=== PATIENT | male | born 1970 | race Caucasian/White ===

== ENCOUNTER 2019-08-29 14:47 | Inpatient (IN) | payer OTHER ==
[2019-08-29 15:23] VITALS: BMI 29.2
--- NOTE | 2019-08-29 15:35 | HP ---
COWS - Scale Resting Pulse: 1= [place] 81-100 Sweatin= Chills/Flushing Restless Observation: 1= Difficult to Sit Still Pupil Size: 0= Normal to Room Light Bone or Joint Aches: 0= None Runny Nose/ Eye Tearin= Nasal Congestion GI Upset > 30mins: 0= None Tremor Observation: 0= None Yawning Observation: 1= 1-2x During Session Anxiety or Irritability: 1=Feels Anxious/Irritable Goose Flesh Skin: 0=Smooth Skin (not yet in withdrawals. just used this morning as fentany and opiod in urine tox.) COWS Score: 6 CIWA Score - Admission Criteria OASAS Guidelines: Admission for Medically Managed Detox: Requires at least one of the followin. CIWA greater than 12 2. Seizures within the past 24 hours 3. Delirium tremens within the past 24 hours 4. Hallucinations within the past 24 hours 5. Acute intervention needed for co occurring medical disorder 6. Acute intervention needed for co occurring psychiatric disorder 7. Severe withdrawal that cannot be handled at a lower level of care (continued vomiting, continued diarrhea, abnormal vital signs) requiring intravenous medication and/or fluids 8. Admitting History and Physical - Admission Chief Complaint: "I tired of using drugs and I got my and daughter and I am spending too much money on the drugs." History of Present Illness: 49 year old male wiht heroin for 20 years and detox and rehab in 2009 and was abstinent. He was in assisted from 2014- but release in 2018 and was abstinent until 6 months ago when he relapsed. Heroin: 10 bags of heroin daily, intravenously,last used this morning today, he never overdosed but witnessed his friend . Cocaine: 1-2 bags every day, last used yesterday. PMH: HTN, HIV on medications Psurg: Umbilical Hernia 2018 Psych: Depression insomnia Patient at high risk for overdose. Poor judgment Poor environment for recover. Many stressors that can cause him to relapse. 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 History of Recent Travel: No Admission ROS [facility] - [facility] Allergies/Adverse Reactions: Allergies Allergy/AdvReac Type Severity Reaction Status Date / Time No Known Allergies Allergy Verified 08/29/19 15:07 Exam Limitations: No Limitations - Ebola screening Have you traveled outside of the country in the last 21 days: No Have you had contact with anyone from an Ebola affected area: No Have you been sick,other than usual withdrawal symptoms: No Do you have a fever: No - Review of Systems Constitutional: Chills EENT: reports: No Symptoms Reported Respiratory: reports: No Symptoms reported Cardiac: reports: No Symptoms Reported GI: reports: No Symptoms Reported : reports: No Symptoms Reported Musculoskeletal: reports: No Symptoms Reported Integumentary: reports: No Symptoms Reported Neuro: reports: No Symptoms reported Endocrine: reports: No Symptoms Reported Hematology: reports: No Symptoms Reported Psychiatric: reports: Judgement Intact, Mood/Affect Appropiate, Orientated x3, Anxious Other Systems: Reviewed and Negative Patient History - Patient Medical History Hx Anemia: No Hx Asthma: No Hx Chronic Obstructive Pulmonary Disease (COPD): No Hx Cancer: No Hx Cardiac Disorders: No Hx Congestive Heart Failure: No Hx Hypertension: Yes Hx Hypercholesterolemia: No Hx Pacemaker: No HX Cerebrovascular Accident: No Hx Seizures: No Hx Dementia: No Hx Diabetes: No Hx Gastrointestinal Disorders: No Hx Liver Disease: No Hx Genitourinary Disorders: No Hx Sexually Transmitted Disorders: No Hx Renal Disease (ESRD): No Hx Thyroid Disease: No Hx Human Immunodeficiency Virus (HIV): Yes (on meds) Hx Hepatitis C: Yes (treated while in assisted) Hx Depression: No Hx Suicide Attempt: No Hx Bipolar Disorder: No - Smoking Cessation Smoking history: Current every day smoker Have you smoked in the past 12 months: Yes Aproximately how many cigarettes per day: 5 Hx Chewing Tobacco Use: No Initiated information on smoking cessation: Yes 'Breaking Loose' booklet given: 08/29/19 - Substances abused Heroin Substance route: Inhalation Frequency: Daily Amount used: 10 bags Age of first use: 18 Date of last use: 08/29/19 Cocaine Substance route: Injection Frequency: 1-2 times per week Amount used: 1-2 bags Age of first use: 18 Date of last use: 08/26/19 Admission Physical Exam [facility] - Vital Signs Vital Signs: Vital Signs - 24 hr 08/29/19 15:07 Temperature 97.1 F L Pulse Rate 84 Respiratory 17 Rate Blood Pressure 117/66 - Physical General Appearance: Yes: No Apparent Distress, Appropriately Dressed, Mild Distress, Sweating, Anxious HEENTM: Yes: EOMI, Hearing grossly Normal, Normal ENT Inspection, Normocephalic , Normal Voice, [place], Pharynx Normal, Tm's normal Respiratory: Yes: Chest Non-Tender, Lungs Clear, Normal Breath Sounds, No Respiratory Distress, No Accessory Muscle Use Neck: Yes: No masses,lesions,Nodules, Supple, Trachea in good position Breast: Yes: Within Normal Limits Cardiology: Yes: Regular Rhythm, Regular Rate, S1, S2 Abdominal: Yes: Non Tender, Increased Bowel Sounds, Protuberent Genitourinary: Yes: Within Normal Limits Back: Yes: Normal Inspection Musculoskeletal: Yes: full range of Motion, Gait Steady, Pelvis Stable Extremities: Yes: Normal Capillary Refill Neurological: Yes: 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
[2019-08-29] MEDS ORDERED: METHOCARBAMOL 500 MG TABLET PO PRN (15:41)
[2019-08-29] MEDS ORDERED: BISMUTH SUBSALICYLATE 524 MG/30 ML UD PO PRN (15:41)
[2019-08-29] MEDS ORDERED: MELATONIN 5 MG TABLETS PO PRN (15:41)
[2019-08-29] MEDS ORDERED: hydrOXYzine PAMOATE 25 MG CAPSULE (FP) PO PRN (15:41)
[2019-08-29] MEDS ORDERED: ACETAMINOPHEN 325 MG TABLET (FP) PO PRN ×2 (15:41)
[2019-08-29] MEDS ORDERED: MAGNESIUM CITRATE 300 ML BOTTLE PO PRN (15:41)
[2019-08-29] MEDS ORDERED: MAG HYDROX/AL HYDROX/SIMETH 30 ML UNIT-DOSE CUP PO PRN (15:41)
[2019-08-29] MEDS ORDERED: MENTHOL/PHENOL 1 EACH UD MM PRN (15:41)
[2019-08-29] MEDS ORDERED: MAGNESIUM HYDROX 2400MG/30ML ORAL SUSPENSION 30 ML CUP PO PRN (15:41)
[2019-08-29] MEDS ORDERED: IBUPROFEN 400 MG TABLET (FP) PO PRN (15:41)
[2019-08-29] MEDS ORDERED: cloNIDine HCL 0.1 MG TABLET PO PRN (15:41)
[2019-08-29] MEDS ORDERED: METHADONE HCL 10 MG TABLET (FOR DETOX USE ONLY) PO ONE (17:00)
[2019-08-29] MEDS ORDERED: PATIENT'S OWN MEDICATION (NON-FORMULARY) (Ibuprofen/Famotidine [Duexis 800-26.6 Mg Tablet] PO SCH (22:00)
[2019-08-29] MEDS: traZODone HCL 100 MG TABLET (FP) PO SCH (22:19)
[2019-08-29] MEDS: THIAMINE HCL 100 MG TABLET (FP) PO SCH (22:19)
[2019-08-30] MEDS: DARUNAVIR 800 MG/COBICISTAT 150MG TABLET PO SCH (06:25)
[2019-08-30] MEDS: DOLUTEGRAVIR SODIUM 50 MG TABLET (NON-FORMULARY) PO SCH (06:25)
[2019-08-30] MEDS ORDERED: METHADONE HCL 5 MG TABLET (FOR DETOX USE ONLY) ONE (09:18)
[2019-08-30] MEDS ORDERED: METHADONE HCL 10 MG TABLET (FOR DETOX USE ONLY) ONE (09:19)
[2019-08-30 09:50] LABS: HEMATOCRIT 34.9 % (35.4-49); HEMOGLOBIN 11.8 GM/dL (11.7-16.9); MCH 30.3 pg (25.7-33.7); MCHC 33.8 g/dl (32.0-35.9); MEAN CELL VOLUME 89.7 fl (80-96); MEAN PLT VOLUME 10.3 fl (7.5-11.1); PLATELET COUNT 209 K/MM3 (134-434); RBC 3.89 M/mm3 (4.00-5.60); RDW 13.5 % (11.9-15.9); WHITE BLOOD COUNT 6.9 K/mm3 (4.0-10.0)
[2019-08-30 09:59] LABS: ALBUMIN 3.5 g/dl (3.4-5.0); BILIRUBIN,TOTAL 0.4 mg/dL (0.2-1); BLOOD UREA NITROGEN 20.3 mg/dL (7-18); CALCIUM 9.2 mg/dL (8.5-10.1); CREATININE 1.2 mg/dL (0.55-1.3); POTASSIUM 3.9 mmol/L (3.5-5.1)
[2019-08-30] MEDS ORDERED: PATIENT'S OWN MEDICATION (NON-FORMULARY) (Lisinopril/Hydrochlorothiazide [Lisinopril-Hctz PO SCH (10:00)
[2019-08-30] MEDS ORDERED: METHADONE (DETOX) 20 MG, METHADONE (DETOX) 5 MG PO ONE (10:00)
[2019-08-30] MEDS: amLODIPine BESYLATE 5 MG TABLET (FP) PO SCH (10:12)
[2019-08-30] MEDS: ASPIRIN 81 MG CHEWABLE TABLETS PO SCH (10:12)
[2019-08-30] MEDS: HYDROCHLOROTHIAZIDE 25 MG TABLET (FP) PO SCH (10:12)
[2019-08-30] MEDS: PREGABALIN 75 MG CAPSULE PO SCH (10:12)
[2019-08-30] MEDS: PATIENT'S OWN MEDICATION (NON-FORMULARY) (Omeprazole [Omeprazole] 40 MG) PO SCH (10:13)
[2019-08-30] MEDS: LISINOPRIL 20 MG TABLET (FP) PO SCH (10:13)
[2019-08-30] MEDS: PRENATAL VITAMINS W/ FOLIC ACID TABLET (FP) PO SCH (10:13)
[2019-08-30] MEDS: PATIENT'S OWN MEDICATION (NON-FORMULARY) (Pravastatin Sodium 40 MG) PO SCH (10:13)
[2019-08-30] MEDS: PATIENT'S OWN MEDICATION (NON-FORMULARY) (Sertraline Hcl [Sertraline Hcl] 100 MG) PO SCH (10:13)
--- NOTE | 2019-08-30 11:42 | CONSULT ---
[facility] Psychiatric Consult - Data Date of interview: 08/30/19 Admission source: [facility] Identifying data: First visit to [facility] and admission to [address] [place] [address] for this 49 y/o male self-referred for detoxification treatment. CECELIA issues : heroin, cocaine, nicotine. Patient is , father of one, domiciled (lives with + daughter), unemployed and currently deprived of income. Substance Abuse History: Discussed with the patient. Details in current [facility] report as follows : Smoking history: Current every day smoker. Have you smoked in the past 12 months: Yes. Aproximately how many cigarettes per day: 5. Hx Chewing Tobacco Use: No. Initiated information on smoking cessation: Yes. ' Breaking Loose' booklet given: 08/29/19. - Substances abused. Heroin. Substance route: Inhalation. Frequency: Daily. Amount used: 10 bags. Age of first use: 18. Date of last use: 08/29/19. Cocaine. Substance route: Injection. Frequency: 1-2 times per week. Amount used: 1-2 bags. Age of first use: 18. Date of last use: 08/26/19 Medical History: Medical profile is remarkable for hypertension, hepatitis C ( treated), HIV infection since 1997 (on ART medications) and history of umbilical herniorraphy. Psychiatric History: Patient denies history of psychiatric hospitalizations. He , however, reports monthly psychiatric follow-up care at [facility] in [facility]. " I see a psychiatrist there every month for depression and insomnia." Mr Jimenez is prescribed trazodone and sertraline. Patient denies history of suicide attempts. Physical/Sexual Abuse/Trauma History: Patient denies. Additional Comment: No toxicology available for review. Mental Status Exam - Mental Status Exam Alert and Oriented to: Time, Place, Person Cognitive Function: Good Patient Appearance: Well Groomed Mood: Withdrawn, Hopeful Affect: Appropriate, Normal Range Patient Behavior: Fatigued, Appropriate, Cooperative Speech Pattern: Clear, Appropriate Voice Loudness: Normal Thought Process: Intact, Goal Oriented Thought Disorder: Not Present Hallucinations: Denies Suicidal Ideation: Denies Homicidal Ideation: Denies Insight/Judgement: Poor Sleep: Well (on trazodone) Gait/Station: Normal Psychiatric Findings - Problem List ([place] 1, 2,3) (1) Opioid use disorder Current Visit: Yes Status: Chronic (2) Cocaine use disorder Current Visit: Yes Status: Chronic (3) Nicotine dependence Current Visit: Yes Status: Chronic (4) Substance induced mood disorder Current Visit: Yes Status: Chronic (5) History of depression Current Visit: Yes Status: Chronic Comment: On sertraline. (6) Insomnia Current Visit: Yes Status: Chronic - Initial Treatment Plan Initial Treatment Plan: Psychoeducation. Sleep hygiene. Detoxification. MAT services discussed with patient. NA meetings. Zoloft 100 mg po daily + trazodone 100 mg po hs are already in place (started in ED by medical attending) . Side effects/benefits of both drugs are discussed with the patient in this session. Made aware of potential for priapism, occurrence of suicidal ideation and sexual dysfunction (impotence). Mr Jimenez has expressed his agreement with this plan of care. Gave verbal consent to MD. Downey.
--- NOTE | 2019-08-30 14:08 | PN ---
BHS COWS - Scale Resting Pulse: 0= [place] 80 or Below Sweatin= Chills/Flushing Restless Observation: 1= Difficult to Sit Still Pupil Size: 0= Normal to Room Light Bone or Joint Aches: 2= Severe Diffuse Aches Runny Nose/ Eye Tearin= Nasal Congestion GI Upset > 30mins: 1= Stomach Cramp Tremor Observation of Outstretched Hands: 1= Tremor [place], Not Seen Yawning Observation: 0= None Anxiety or Irritability: 1=Feels Anxious/Irritable Goose Flesh Skin: 0=Smooth Skin COWS Score: 8 BHS Progress Note (SOAP) Subjective: Tremors, sweats, interrupted sleep and abdominal cramps Objective: 08/30/19 14:07 Withdrawal sx Vital Signs 08/30/19 08/30/19 06:46 08:57 Temperature 98.1 F 99.5 F Pulse Rate 67 78 Respiratory 20 19 Rate Blood Pressure 132/58 L 131/74 VSS Laboratory Last Values WBC 6.9 K/mm3 (4.0-10.0) 08/30/19 07:30 RBC 3.89 M/mm3 (4.00-5.60) L 08/30/19 07:30 Hgb 11.8 GM/dL (11.7-16.9) 08/30/19 07:30 Hct 34.9 % (35.4-49) L 08/30/19 07:30 MCV 89.7 fl (80-96) 08/30/19 07:30 MCH 30.3 pg (25.7-33.7) 08/30/19 07:30 MCHC 33.8 g/dl (32.0-35.9) 08/30/19 07:30 RDW 13.5 % (11.9-15.9) 08/30/19 07:30 Plt Count 209 K/MM3 (134-434) 08/30/19 07:30 MPV 10.3 fl (7.5-11.1) 08/30/19 07:30 Sodium 140 mmol/L (136-145) 08/30/19 07:30 Potassium 3.9 mmol/L (3.5-5.1) 08/30/19 07:30 Chloride 104 mmol/L (98-107) 08/30/19 07:30 Carbon Dioxide 30 mmol/L (21-32) 08/30/19 07:30 Anion Gap 5 MMOL/L (8-16) L 08/30/19 07:30 BUN 20.3 mg/dL (7-18) H 08/30/19 07:30 Creatinine 1.2 mg/dL (0.55-1.3) 08/30/19 07:30 Est GFR (CKD-EPI)AfAm 80.66 08/30/19 07:30 Est GFR (CKD-EPI)NonAf 69.59 08/30/19 07:30 Random Glucose 111 mg/dL (74-106) H 08/30/19 07:30 Calcium 9.2 mg/dL (8.5-10.1) 08/30/19 07:30 Total Bilirubin 0.4 mg/dL (0.2-1) 08/30/19 07:30 AST 17 U/L (15-37) 08/30/19 07:30 ALT 25 U/L (13-61) 08/30/19 07:30 Alkaline Phosphatase 77 U/L (45-117) 08/30/19 07:30 Total Protein 7.0 g/dl (6.4-8.2) 08/30/19 07:30 Albumin 3.5 g/dl (3.4-5.0) 08/30/19 07:30 RPR Titer Nonreactive (NONREACTIVE) 08/30/19 07:30 Labs noted, no panic values Assessment: 08/30/19 14:08 Withdrawal sx Plan: Continue detox
[2019-08-30] MEDS: THIAMINE HCL 100 MG TABLET (FP) PO SCH (22:00)
[2019-08-30] MEDS: traZODone HCL 100 MG TABLET (FP) PO SCH (22:01)
[2019-08-31] MEDS: DOLUTEGRAVIR SODIUM 50 MG TABLET (NON-FORMULARY) PO SCH (06:12)
[2019-08-31] MEDS: DARUNAVIR 800 MG/COBICISTAT 150MG TABLET PO SCH (06:12)
[2019-08-31] MEDS ORDERED: METHADONE HCL 10 MG TABLET (FOR DETOX USE ONLY) PO ONE (10:00)
[2019-08-31] MEDS: ASPIRIN 81 MG CHEWABLE TABLETS PO SCH (10:03)
[2019-08-31] MEDS: PREGABALIN 75 MG CAPSULE PO SCH (10:03)
[2019-08-31] MEDS: LISINOPRIL 20 MG TABLET (FP) PO SCH (10:03)
[2019-08-31] MEDS: amLODIPine BESYLATE 5 MG TABLET (FP) PO SCH (10:03)
[2019-08-31] MEDS: HYDROCHLOROTHIAZIDE 25 MG TABLET (FP) PO SCH (10:03)
[2019-08-31] MEDS: PRENATAL VITAMINS W/ FOLIC ACID TABLET (FP) PO SCH (10:04)
[2019-08-31] MEDS: PATIENT'S OWN MEDICATION (NON-FORMULARY) (Omeprazole [Omeprazole] 40 MG) PO SCH (10:04)
[2019-08-31] MEDS: PATIENT'S OWN MEDICATION (NON-FORMULARY) (Sertraline Hcl [Sertraline Hcl] 100 MG) PO SCH (10:04)
[2019-08-31] MEDS: PATIENT'S OWN MEDICATION (NON-FORMULARY) (Pravastatin Sodium 40 MG) PO SCH (10:04)
--- NOTE | 2019-08-31 15:33 | PN ---
BHS COWS - Scale Resting Pulse: 0= [place] 80 or Below Sweatin= Chills/Flushing Restless Observation: 1= Difficult to Sit Still Pupil Size: 0= Normal to Room Light Bone or Joint Aches: 1= Mild Discomfort Runny Nose/ Eye Tearin= Runny Nose/Eyes GI Upset > 30mins: 2= Nausea/Diarrhea Tremor Observation of Outstretched Hands: 2= Slight Tremor Visible Yawning Observation: 0= None Anxiety or Irritability: 2=Irritable/Anxious Goose Flesh Skin: 0=Smooth Skin COWS Score: 11 BHS Progress Note (SOAP) Subjective: Lower back pain Objective: 08/31/19 15:30 Last Vital Signs Temp Pulse Resp BP Pulse Ox 97.9 F 74 18 113/64 08/31/19 12:32 08/31/19 12:32 08/31/19 12:32 08/31/19 12:32 Laboratory Tests 08/30/19 08/30/19 08/30/19 07:30 07:30 07:30 WBC 6.9 RBC 3.89 L Hgb 11.8 Hct 34.9 L MCV 89.7 MCH 30.3 MCHC 33.8 RDW 13.5 Plt Count 209 MPV 10.3 Sodium 140 Potassium 3.9 Chloride 104 Carbon Dioxide 30 Anion Gap 5 L BUN 20.3 H Creatinine 1.2 Est GFR (CKD-EPI)AfAm 80.66 Est GFR (CKD-EPI)NonAf 69.59 Random Glucose 111 H Calcium 9.2 Total Bilirubin 0.4 AST 17 ALT 25 Alkaline Phosphatase 77 Total Protein 7.0 Albumin 3.5 RPR Titer Nonreactive Labs reviewed: bun 20.3 (high), gluc 111 (high) Assessment: 08/31/19 15:31 Withdrawal sxs Noted with azotemia and hyperglycemia Plan: Continue detox Encouraged PO water intake Azotemia: encouraged to drink more water Hyperglycemia: mild, most likely r/t withdrawal, follow up with PCP for monitoring
[2019-08-31] MEDS: THIAMINE HCL 100 MG TABLET (FP) PO SCH (22:04)
[2019-08-31] MEDS: traZODone HCL 100 MG TABLET (FP) PO SCH (22:04)
[2019-09-01] MEDS: DARUNAVIR 800 MG/COBICISTAT 150MG TABLET PO SCH (07:20)
[2019-09-01] MEDS: DOLUTEGRAVIR SODIUM 50 MG TABLET (NON-FORMULARY) PO SCH (07:20)
[2019-09-01] MEDS ORDERED: IBUPROFEN 400 MG TABLET (FP) PO PRN (08:25)
[2019-09-01] MEDS ORDERED: METHADONE HCL 5 MG TABLET (FOR DETOX USE ONLY) ONE (09:13)
[2019-09-01] MEDS ORDERED: METHADONE HCL 10 MG TABLET (FOR DETOX USE ONLY) ONE (09:14)
[2019-09-01] MEDS ORDERED: METHADONE (DETOX) 10 MG, METHADONE (DETOX) 5 MG PO ONE (10:00)
[2019-09-01] MEDS: LISINOPRIL 20 MG TABLET (FP) PO SCH (10:09)
[2019-09-01] MEDS: PREGABALIN 75 MG CAPSULE PO SCH (10:10)
[2019-09-01] MEDS: ASPIRIN 81 MG CHEWABLE TABLETS PO SCH (10:10)
[2019-09-01] MEDS: PATIENT'S OWN MEDICATION (NON-FORMULARY) (Sertraline Hcl [Sertraline Hcl] 100 MG) PO SCH (10:10)
[2019-09-01] MEDS: HYDROCHLOROTHIAZIDE 25 MG TABLET (FP) PO SCH (10:10)
[2019-09-01] MEDS: amLODIPine BESYLATE 5 MG TABLET (FP) PO SCH (10:10)
[2019-09-01] MEDS: PATIENT'S OWN MEDICATION (NON-FORMULARY) (Pravastatin Sodium 40 MG) PO SCH (10:11)
[2019-09-01] MEDS: PATIENT'S OWN MEDICATION (NON-FORMULARY) (Omeprazole [Omeprazole] 40 MG) PO SCH (10:11)
[2019-09-01] MEDS: PRENATAL VITAMINS W/ FOLIC ACID TABLET (FP) PO SCH (10:11)
--- NOTE | 2019-09-01 10:54 | PN ---
BHS COWS - Scale Resting Pulse: 0= [place] 80 or Below Sweatin= Chills/Flushing Restless Observation: 1= Difficult to Sit Still Pupil Size: 0= Normal to Room Light Bone or Joint Aches: 2= Severe Diffuse Aches Runny Nose/ Eye Tearin= None GI Upset > 30mins: 0= None Tremor Observation of Outstretched Hands: 1= Tremor [place], Not Seen Yawning Observation: 0= None Anxiety or Irritability: 1=Feels Anxious/Irritable Goose Flesh Skin: 0=Smooth Skin COWS Score: 6 BHS Progress Note (SOAP) Subjective: chronic back pain restless anxiety Objective: 09/01/19 10:54 Vital Signs Temperature 98.1 F 09/01/19 08:13 Pulse Rate 69 09/01/19 08:13 Respiratory Rate 18 09/01/19 08:13 Blood Pressure 115/65 09/01/19 08:13 O2 Sat by Pulse Oximetry (%) Laboratory Tests 08/30/19 08/30/19 08/30/19 07:30 07:30 07:30 WBC 6.9 RBC 3.89 L Hgb 11.8 Hct 34.9 L MCV 89.7 MCH 30.3 MCHC 33.8 RDW 13.5 Plt Count 209 MPV 10.3 Sodium 140 Potassium 3.9 Chloride 104 Carbon Dioxide 30 Anion Gap 5 L BUN 20.3 H Creatinine 1.2 Est GFR (CKD-EPI)AfAm 80.66 Est GFR (CKD-EPI)NonAf 69.59 Random Glucose 111 H Calcium 9.2 Total Bilirubin 0.4 AST 17 ALT 25 Alkaline Phosphatase 77 Total Protein 7.0 Albumin 3.5 RPR Titer Nonreactive aaox3 ambulating no acute distress Assessment: 09/01/19 10:54 withdrawals Plan: continue detox lidocaine patch motrin 800mg tid prn
[2019-09-01] MEDS ORDERED: LIDOCAINE 5% TOPICAL PATCH TP ONE (10:55)
[2019-09-01] MEDS ORDERED: LIDOCAINE PATCH REMOVAL MC SCH (22:00)
[2019-09-01] MEDS: traZODone HCL 100 MG TABLET (FP) PO SCH (22:13)
[2019-09-01] MEDS: THIAMINE HCL 100 MG TABLET (FP) PO SCH (22:13)
[2019-09-02] MEDS: DOLUTEGRAVIR SODIUM 50 MG TABLET (NON-FORMULARY) PO SCH (07:58)
[2019-09-02] MEDS: DARUNAVIR 800 MG/COBICISTAT 150MG TABLET PO SCH (07:58)
[2019-09-02 09:33] VITALS: BP 131/72; PULSE 81; TEMP 98.7
[2019-09-02] MEDS ORDERED: LIDOCAINE 5% TOPICAL PATCH TP SCH (10:00)
[2019-09-02] MEDS ORDERED: METHADONE HCL 10 MG TABLET (FOR DETOX USE ONLY) PO ONE (10:00)
[2019-09-02] MEDS: LISINOPRIL 20 MG TABLET (FP) PO SCH (10:08)
[2019-09-02] MEDS: amLODIPine BESYLATE 5 MG TABLET (FP) PO SCH (10:08)
[2019-09-02] MEDS: ASPIRIN 81 MG CHEWABLE TABLETS PO SCH (10:08)
[2019-09-02] MEDS: PREGABALIN 75 MG CAPSULE PO SCH (10:08)
[2019-09-02] MEDS: HYDROCHLOROTHIAZIDE 25 MG TABLET (FP) PO SCH (10:08)
[2019-09-02] MEDS: PATIENT'S OWN MEDICATION (NON-FORMULARY) (Sertraline Hcl [Sertraline Hcl] 100 MG) PO SCH (10:09)
[2019-09-02] MEDS: PRENATAL VITAMINS W/ FOLIC ACID TABLET (FP) PO SCH (10:09)
[2019-09-02] MEDS: PATIENT'S OWN MEDICATION (NON-FORMULARY) (Pravastatin Sodium 40 MG) PO SCH (10:09)
[2019-09-02] MEDS: PATIENT'S OWN MEDICATION (NON-FORMULARY) (Omeprazole [Omeprazole] 40 MG) PO SCH (10:09)
--- NOTE | 2019-09-02 10:33 | PN ---
BHS COWS - Scale Resting Pulse: 1= [place] 81-100 Sweatin= Chills/Flushing Restless Observation: 1= Difficult to Sit Still Pupil Size: 0= Normal to Room Light Bone or Joint Aches: 1= Mild Discomfort Runny Nose/ Eye Tearin= None GI Upset > 30mins: 0= None Tremor Observation of Outstretched Hands: 0= None Yawning Observation: 0= None Anxiety or Irritability: 1=Feels Anxious/Irritable Goose Flesh Skin: 0=Smooth Skin COWS Score: 5 BHS Progress Note (SOAP) Subjective: back pain anxiety Objective: 09/02/19 10:33 Vital Signs Temperature 98.7 F 09/02/19 08:33 Pulse Rate 81 09/02/19 08:33 Respiratory Rate 17 09/02/19 08:33 Blood Pressure 131/72 09/02/19 08:33 O2 Sat by Pulse Oximetry (%) aaox3 ambulating no acute distress Assessment: 09/02/19 10:33 mild withdrawals Plan: d/c in am
--- NOTE | 2019-09-02 11:04 | DS ---
[facility] Detox Discharge Summary Admission Date: 08/29/19 Discharge Date: 09/02/19 - History Present History: Cannabis Dependence, Opioid Dependence - Physical Exam Results Vital Signs: Vital Signs Temperature 98.7 F 09/02/19 08:33 Pulse Rate 81 09/02/19 08:33 Respiratory Rate 17 09/02/19 08:33 Blood Pressure 131/72 09/02/19 08:33 O2 Sat by Pulse Oximetry (%) Pertinent Admission Physical Exam Findings: Vital Signs Temperature 98.7 F 09/02/19 08:33 Pulse Rate 81 09/02/19 08:33 Respiratory Rate 17 09/02/19 08:33 Blood Pressure 131/72 09/02/19 08:33 O2 Sat by Pulse Oximetry (%) Laboratory Tests 08/30/19 08/30/19 08/30/19 07:30 07:30 07:30 WBC 6.9 RBC 3.89 L Hgb 11.8 Hct 34.9 L MCV 89.7 MCH 30.3 MCHC 33.8 RDW 13.5 Plt Count 209 MPV 10.3 Sodium 140 Potassium 3.9 Chloride 104 Carbon Dioxide 30 Anion Gap 5 L BUN 20.3 H Creatinine 1.2 Est GFR (CKD-EPI)AfAm 80.66 Est GFR (CKD-EPI)NonAf 69.59 Random Glucose 111 H Calcium 9.2 Total Bilirubin 0.4 AST 17 ALT 25 Alkaline Phosphatase 77 Total Protein 7.0 Albumin 3.5 RPR Titer Nonreactive aaox3 ambulating lungs CTA no acute distress d/c took appox 30-35min - Treatment Hospital Course: Detox Protocol Followed, Detoxed Safely, Responded well, Discharged Condition Good, Rehab Referral Accepted - Medication Discharge Medications: Ambulatory Orders Amlodipine Besylate [Norvasc -] 5 mg PO DAILY 08/29/19 Aspirin 81 mg PO DAILY 08/29/19 Darunavir/Cobicistat [Prezcobix 800 mg-150 mg Tablet] 1 each PO DAILY 08/29/19 Dolutegravir Sodium [Tivicay] 50 mg PO DAILY 08/29/19 Ibuprofen/Famotidine [Duexis 800-26.6 mg Tablet] 1 each PO TID 08/29/19 Lisinopril/Hydrochlorothiazide [Lisinopril-Hctz 20-25 mg Tab] 1 each PO DAILY Metoprolol Succinate 50 mg PO DAILY 08/29/19 Omeprazole 40 mg PO DAILY 08/29/19 Pravastatin Sodium [Pravachol (Nf)] 40 mg PO DAILY 08/29/19 Pregabalin [Lyrica -] 75 mg PO DAILY 08/29/19 Sertraline HCl 100 mg PO DAILY 08/29/19 traZODone HCL [Desyrel -] 100 mg PO HS 08/29/19 - Diagnosis (1) Cocaine use disorder Current Visit: Yes Status: Chronic (2) History of depression Current Visit: Yes Status: Chronic (3) Insomnia Current Visit: Yes Status: Chronic (4) Nicotine dependence Current Visit: Yes Status: Chronic Qualifiers: Nicotine product type: cigarettes Substance use status: uncomplicated Qualified Code(s): F17.210 - Nicotine dependence, cigarettes, uncomplicated (5) Opioid use disorder Current Visit: Yes Status: Chronic (6) Substance induced mood disorder Current Visit: Yes Status: Chronic - AMA Did Patient Leave Against Medical Advice: No
[2019-09-03] MEDS ORDERED: METHADONE HCL 5 MG TABLET (FOR DETOX USE ONLY) PO ONE (06:00)
== END 2019-09-02 11:38 | disposition home or self-care (01) | DRG 773 ==
LOC: YASAS 14:47 → Y6N 16:26
PROVIDERS: ADMIT Allergy & Immunology; ATTEND Allergy & Immunology
PROC: HZ2ZZZZ Detoxification Services for Substance Abuse Treatment (ICD-10-PCS; principal; 2019-08-29)
DX: F11.23 Opioid dependence with withdrawal (principal); F14.10 Cocaine abuse, uncomplicated; F17.210 Nicotine dependence, cigarettes, uncomplicated; F19.24 Other psychoactive substance dependence with psychoactive substance-induced mood disorder; I10 Essential (primary) hypertension; Z21 Asymptomatic human immunodeficiency virus [HIV] infection status; G47.00 Insomnia, unspecified; R73.9 Hyperglycemia, unspecified; R79.89 Other specified abnormal findings of blood chemistry; Z86.19 Personal history of other infectious and parasitic diseases
CPT/HCPCS: 36415; 80053; 85027; 86593